=== PATIENT | female | born 1960 | race Caucasian/White ===

== ENCOUNTER → 2024-08-23 10:34 | Outpatient (REF) | payer OTHER, SELFPAY | LOC: HWWDC 10:34 | PROVIDERS: ATTENDING PHYSICIAN Nurse Practitioner | DX: Z12.31 Encounter for screening mammogram for malignant neoplasm of breast (principal) | CPT/HCPCS: 77063; 77067 ==

== ENCOUNTER → 2025-08-17 10:26 | Outpatient (REF) | payer OTHER, SELFPAY | LOC: HWRAD 10:26 | PROVIDERS: ATTENDING PHYSICIAN Nurse Practitioner | DX: M81.0 Age-related osteoporosis without current pathological fracture (principal) | CPT/HCPCS: 77080 ==